=== PATIENT | male | born 1985 | race Caucasian/White ===

== ENCOUNTER 2017-12-06 21:45 | Emergency (ER) | payer OTHER ==
[~2017-12-06] VITALS: Ht 180.3 cm; Wt 73.5 kg
[2017-12-06] MEDS ORDERED: TRIUMEQ TABLET1 EACH PO (22:00)
[2017-12-07] MEDS ORDERED: PROTONIX40 MG PO (04:28)
== END 2017-12-07 05:47 | disposition home or self-care (01) ==
LOC: ER 21:45
DX: K29.70 Gastritis, unspecified, without bleeding (principal)